=== PATIENT | female | born 1995 | race African-American/Black ===

== ENCOUNTER → 2024-09-16 | Outpatient (CLI) | payer OTHER ==
[~2024-09-16] MED LIST: PROHANCE 279.3MG/ML 15ML VIAL ONE; PROHANCE 279.3MG/ML 5ML VIAL ONE
== END ==
LOC: M PLAIMG 12:46
PROVIDERS: ATTEND Orthopaedic Surgery Hand Surgery
DX: M25.431 Effusion, right wrist (principal); M67.431 Ganglion, right wrist; M65.931 Unspecified synovitis and tenosynovitis, right forearm
CPT/HCPCS: 73223; A9576

== ENCOUNTER 2024-10-11 07:30 | Day surgery (SDC) | payer OTHER ==
[~2024-10-11] VITALS: Ht 165.1 cm; Wt 108.0 kg
[2024-10-11] MEDS ORDERED: dexAMETHasone 4 MG/ML 1 ML VIAL As Ordered ONE (07:56)
[2024-10-11] MEDS ORDERED: LIDOCAINE 2% 100 MG/5 ML SDV (FOR ANES.) As Ordered ONE (07:56)
[2024-10-11] MEDS ORDERED: MIDAZOLAM INJ 2 MG/2 ML VIAL As Ordered ONE (07:56)
[2024-10-11] MEDS ORDERED: KETOROLAC 30 MG/ML 1 ML VIAL As Ordered ONE (07:56)
[2024-10-11] MEDS ORDERED: ONDANSETRON 4MG 2ML VIAL As Ordered ONE (07:56)
[2024-10-11] MEDS ORDERED: LR 1,000 ML IV SCH ×2 (08:00→09:30)
[2024-10-11] MEDS ORDERED: PERC5TAB12 PO (09:30)
[2024-10-11] MEDS: HYDROMORPHONE HCL 0.5 MG/0.5 ML SYRINGE IV PRN (09:45)
[2024-10-11] MEDS ORDERED: ceFAZolin SOD 2 GM IV ONCE IV ONE (10:00)
[2024-10-11] MEDS ORDERED: HYDROMORPHONE HCL 0.5 MG/0.5 ML SYRINGE IV PRN (10:45)
[2024-10-11] MEDS ORDERED: traMADol 50 MG TAB PO ONE (11:00)
[2024-10-11 11:07] VITALS: BP 134/85; TEMP 97.8; O2SAT 97
== END 2024-10-11 11:11 | disposition home or self-care (01) ==
LOC: M SDC 07:30
PROVIDERS: ATTEND Orthopaedic Surgery Hand Surgery
DX: M67.432 Ganglion, left wrist (principal)
CPT/HCPCS: 25111; 88304; J0665; J0690; J1100; J1171; J1885; J2250; J2405; J2765; J3010